=== PATIENT | female | born 1940 | race Caucasian/White ===

== ENCOUNTER → 2018-04-01 08:10 | Outpatient (CLI) | payer MEDICARE, OTHER | END | disposition home or self-care (01) | LOC: D.MRI 08:10 | DX: M54.2 Cervicalgia (principal) ==

== ENCOUNTER → 2020-03-26 10:51 | Outpatient (CLI) | payer MEDICARE, OTHER | END | disposition home or self-care (01) | LOC: D.LAB 10:51 | PROVIDERS: ATTEND Family Medicine | DX: Z20.828 Contact with and (suspected) exposure to other viral communicable diseases (principal) ==

== ENCOUNTER → 2020-03-28 09:08 | Outpatient (CLI) | payer MEDICARE, OTHER | END | disposition home or self-care (01) | LOC: D.RT 02-22 09:00 | PROVIDERS: ATTEND Family Medicine | DX: J44.9 Chronic obstructive pulmonary disease, unspecified (principal); Z20.828 Contact with and (suspected) exposure to other viral communicable diseases ==

== ENCOUNTER → 2020-05-17 19:23 | Outpatient (CLI) | payer MEDICARE, OTHER | END | disposition home or self-care (01) | LOC: D.LABREF 19:23 | PROVIDERS: ATTEND Orthopaedic Surgery | DX: M16.11 Unilateral primary osteoarthritis, right hip (principal) ==

== ENCOUNTER 2020-05-19 14:47 | Inpatient (IN) | payer MEDICARE, OTHER ==
[~2020-05-19] VITALS: Ht 160 cm; Wt 68.0 kg
[2020-05-25] MEDS ORDERED: PROTONIX40 MG PO (10:53)
[2020-05-25] MEDS ORDERED: PLAVIX75 MG PO (10:54)
[2020-05-25] MEDS ORDERED: TOPROL XL25 MG PO (10:54)
[2020-05-25] MEDS ORDERED: LOPID600 MG PO (10:55)
[2020-05-25] MEDS ORDERED: EXFORGE 5-160 M1 TAB PO (10:55)
[2020-05-25] MEDS ORDERED: CELEXA40 MG PO (10:55)
[2020-05-25] MEDS ORDERED: LASIX20 MG PO (10:56)
[2020-05-25] MEDS ORDERED: PROAIR HFA8.5 G1 INH (10:57)
[2020-05-25] MEDS ORDERED: VASCEPA1 GM PO (10:57)
[2020-05-25] MEDS ORDERED: ADVAIR 250-501 EAC1 INH (10:58)
[2020-05-25 12:33] LABS: BASOPHILS 0.4 % (0-2); EOSINOPHILS 2.7 % (0-7); HEMATOCRIT 33.7 % (36.0-48.0); HEMOGLOBIN 11.1 g/dL (12-16); IMMATURE GRANULOCYTES 0.2 % (0-5); LYMPHOCYTES 22.9 % (15-50); MCH 30.4 pg (26.0-34.0); MCHC 32.9 g/dL (31.0-37.0); MCV 92.3 fL (80.0-100.0); MEAN PLATELET VOLUME 9.3 fL (7.4-10.4); MONOCYTES 9.3 % (2-11); NEUTROPHILS 64.5 % (40-80); PLATELET COUNT 254 10x3/uL (130-400); RBC 3.65 10x6/uL (4.00-5.40); RDW 13.2 % (11.5-14.5); WBC 5.5 10x3/uL (4.8-10.8)
[2020-05-25 12:42] LABS: ANION GAP 13.2 mmol/L (8-16); CALCIUM 9.2 mg/dL (8.5-10.1); CARBON DIOXIDE 25.9 mmol/L (21.0-32.0); CREATININE - SERUM 1.3 mg/dL (0.6-1.3); POTASSIUM - SERUM 4.1 mmol/L (3.5-5.1)
[2020-05-25 12:45] LABS: APTT 30.7 SECONDS (22.8-39.4); INR 0.92 (0.85-1.17); PROTIME 12.3 SECONDS (11.6-15.0)
[2020-05-25 14:27] LABS: BILIRUBIN NEGATIVE (NEGATIVE); KETONE NEGATIVE (NEGATIVE); NITRITE NEGATIVE (NEGATIVE); UROBILINOGEN NORMAL mg/dL (< 2)
[2020-05-31 11:10] VITALS: BP 122/63; BMI 26.6
--- NOTE | 2020-05-31 14:07 | NUR ---
THROUGH TRAFFIC KEPT TO A MINIMUM. HIBACLENS AND ALCOHOL USED TO CLEAN BEFORE PREPPING. STERILE GOWNED AND GLOVED TO PREP WITH CHLORAPERP.
[2020-05-31 16:07] VITALS: BP 120/60
--- NOTE | 2020-05-31 16:10 | NUR ---
RECEIVED TO ROOM 1210 VIA BED FROM PACU.A/O X3. C/O PAIN TO RIGHT LEG AT THIS TIME. WILL MONITOR. SKIN IS INTACT WITHOUT REDNESS EXCEPT INCISION TO RIGHT GROIN WHICH HAS A DRY INTACT DRESSSING IN PLACE. ATTEMPTED TO CONTACT FAMILY WITHOUT SUCCESS.
[2020-05-31 16:12] VITALS: BP 120/60; BMI 26.6
[2020-05-31 16:25] VITALS: BP 111/49
[2020-05-31 16:45] VITALS: BP 98/64
--- NOTE | 2020-05-31 18:41 | NUR ---
REFUSED SUPPER. REPORTS PAIN IS A LEVEL 8 AT THIS TIME. SPOKE WITH DR. FLORES AND GOT NEW ORDER FOR 100MG ULTRAM PRN. WILL GIVE NEEDED.
--- NOTE | 2020-05-31 18:42 | NUR ---
GIVEN 1000MG TYLENOL PO AT THIS TIME FOR PAIN. WILL MONITOR. DAUGHTER AT BEDSIDE.
--- NOTE | 2020-05-31 19:30 | NUR ---
ALERT RESTING IN BED, CO PAIN ULTRAM GIVEN ORDERED, SEE SHIFT ASSESSMENT, LEIGHANN DICKINSON
[2020-05-31 19:53] VITALS: BP 117/72
[2020-06-01 04:00] VITALS: BP 150/56
[2020-06-01 07:24] LABS: BASOPHILS 0.1 % (0-2); EOSINOPHILS 0.1 % (0-7); IMMATURE GRANULOCYTES 0.2 % (0-5); LYMPHOCYTES 9.2 % (15-50); MCH 30.1 pg (26.0-34.0); MCHC 33.3 g/dL (31.0-37.0); MCV 90.3 fL (80.0-100.0); MEAN PLATELET VOLUME 9.7 fL (7.4-10.4); MONOCYTES 9.6 % (2-11); NEUTROPHILS 80.8 % (40-80); PLATELET COUNT 238 10x3/uL (130-400); RBC 2.99 10x6/uL (4.00-5.40); RDW 12.9 % (11.5-14.5); WBC 8.8 10x3/uL (4.8-10.8)
--- NOTE | 2020-06-01 07:30 | NUR ---
PT AWAKE AND ALERT. LAYING ON BACK. NO NEEDS AT THIS TIME. WOULD LIKE TO SEE IF WE CAN GET SOME MEDICATION TO HELP HER SLEEP. STATES SHE DOESN'T TAKE ANYTHING AT THIS TIME. STATES SHE USED TO TAKE A XANAX BUT IT QUIT WORKING. CL IN REACH. WCTM
[2020-06-01 07:37] LABS: ANION GAP 14.9 mmol/L (8-16); CALCIUM 7.6 mg/dL (8.5-10.1); CREATININE - SERUM 1.1 mg/dL (0.6-1.3); MAGNESIUM - SERUM 1.5 mg/dL (1.8-2.4); POTASSIUM - SERUM 4.9 mmol/L (3.5-5.1)
[2020-06-01 08:07] VITALS: BP 126/52
--- NOTE | 2020-06-01 08:42 | OP ---
PATIENT NAME: TUSHAR ALMARAZ MEDICAL RECORD: [id number] :38 LOCATION:D. D.1210 ADMISSION DATE:05/31/20 SURGEON: LAURENT FLORES DO DATE OF OPERATION: 05/31/2020 PROCEDURE PERFORMED: Right total hip arthroplasty. PREOPERATIVE DIAGNOSIS: Right hip osteoarthritis. POSTOPERATIVE DIAGNOSIS: Right hip osteoarthritis. INDICATIONS: Ms. Almaraz is an 79-year-old female who has had right hip pain for quite some time. She has tried all manner of nonoperative treatment for this, she is tired of dealing with the pain and this affects her activities of daily living and wants something done surgically. She was informed of the risks including infection, bleeding, damage to nerves and vessels in the area, continued pain, blood clots, need for further surgery, fracture, failure of implants and even , and she signed the consent. SURGEON: Laurent Flores DO DESCRIPTION OF PROCEDURE: The patient was taken to the OR suite, laid in supine position, given general anesthetic and intubated. She was given 2 grams Ancef, 80 mg of gentamicin preoperatively and a gram of TXA. She was then moved over to the [place] table and positioned and the right hip was prepped and draped in sterile fashion. Timeout was performed. Everyone was in agreement with the correct site, side, patient, and procedure. I then made an incision over the fascia alan muscle belly and careful dissection made down to the muscle. Raised the fascia off it, took the fascia anteriorly, muscle belly posteriorly, and opened up the rectus interval. The rectus then taken medially and the tensor fascia alan laterally. I then encountered the ascending branch of lateral femoral circumflex artery, tied it off and coagulated with Aquamantys. I then exposed the femoral neck and I opened the capsule, tagged it, put Hohmann's around the femoral neck. We then made a femur cut and removed the head and then removed the labrum and the pulvinar and began reaming, reamed up to a 50. I impacted the cup into place and then once the cup was impacted into place, the liner was put in, impacted in. The femur was exposed and put in the canal finder, first canal finder and then cookie cutter and then broached up to a 10. 10 took very tightly and then reduced with a -6 neck. It appeared to be a little long compared to the left side, so removed the 10 cuts more the femur and then put in a #9 stem down, trialed with a -6 neck and that had equal lengths to the other side. I then put in a #9 stem, impacted into place and was very firmly in the femur, did not move at all. I then impacted on the head and then reduced the hip, then irrigated with 10% povidone-iodine with 500 mL of normal saline solution. I then irrigated that out with a liter of normal saline and then put in Jared, vancomycin and tobramycin powder. Wilmer Henriquez, certified surgical loan assistant, closed the tensor fascia alan with a #1 Vicryl in [id number] and running locking stitch. I then closed the skin with a 2-0 Vicryl in inverted interrupted fashion, 4-0 Monocryl running on the skin, and Prineo glue placed on the skin. Once they dried, Telfa and Tegaderm were placed on the skin. She was awakened and taken to recovery in stable condition. Blood loss was approximately 200 mL. COMPLICATIONS: None. OPERATIVE REPORT [id number] TUSHAR ALMARAZ TRANSFAUSTINO:[id number] Voice Confirmation ID: [id number] DOCUMENT ID: [id number] LAURENT FLORES DO at 0842 CC: [id number] DICTATION DATE: 05/31/20 1505 FIELD SUPERINTENDENT: 06/01/20 0021 ADM IN [facility] [address] [place] [address]
--- NOTE | 2020-06-01 09:20 | NUR ---
ASSISTED PT TO BATHROOM AND GETTING DRESSED. STATED SHE FEELS SO WEAK. MEDS GIVEN PER EMAR. CL IN REACH. WCTM
[2020-06-01 10:50] VITALS: Ht 160 cm; Wt 68.0 kg
--- NOTE | 2020-06-01 10:51 | NUR ---
PT AWAKE SITTING IN CHAIR. STATES HER NECK HURTS MORE THAN HER HIP. GIVEN AN ICE PACK. "I NEVER THOUGHT ABOUT AN ICE PACK BEFORE. IT WORKS WONDERFULLY." CL IN REACH. MAG DONE INFUSING. CHAIR ALARM ON. STATES HIP PAIN IS A 4 OUT OF 10 ON THE PAIN SCALE. TM
[2020-06-01 11:27] VITALS: BP 115/45
--- NOTE | 2020-06-01 15:54 | NUR ---
DAUGHTER CARIDAD IN ROOM. ASSISTED PT TO BATHROOM AND BACK TO BED. CL IN REACH. [facility]
[2020-06-01 16:00] VITALS: BP 99/49
--- NOTE | 2020-06-01 17:40 | NUR ---
PT WITH C/O "HEARTBURN AND REFLUX". PAGE PLACED TO BRIANA LAUGHLIN APRN. PAGE RETURNED AND ORACLE DATABASE DEVELOPER NOTIFIED OF PT STATE. TELEPHONE ORDERS RECD ARE 30ML MAALOX PO Q [address] ORDER AND NOTIFY SHIFT NURSE OF ORDER.
--- NOTE | 2020-06-01 18:34 | NUR ---
DAUGHTER IN ROOM. STATES SHE FEELS LIKE SHE IS BLOATED. MYLANTA RECIEVED FOR ACID REFLUX. DAUGHTER BENNY IN ROOM. CL IN REACH. BED ALARM ON. WCTM
[2020-06-01 20:00] VITALS: BP 123/73
--- NOTE | 2020-06-01 20:00 | NUR ---
ALERT RESTIGN IN BED, REPORTS SORENESS TO HIP REQUESTIGN PAIN PILL FOR REST TONIGHT, SEE SHIFT ASSESSMENT, CALL GAURAV DICKINSON
[2020-06-02 05:00] VITALS: BP 111/53
[2020-06-02 07:19] LABS: BASOPHILS 0.2 % (0-2); CALCIUM 7.7 mg/dL (8.5-10.1); CARBON DIOXIDE 26.3 mmol/L (21.0-32.0); CREATININE - SERUM 1.2 mg/dL (0.6-1.3); EOSINOPHILS 2.8 % (0-7); HEMATOCRIT 25.2 % (36.0-48.0); HEMOGLOBIN 8.2 g/dL (12-16); IMMATURE GRANULOCYTES 0.2 % (0-5); LYMPHOCYTES 15.4 % (15-50); MCH 29.9 pg (26.0-34.0); MCHC 32.5 g/dL (31.0-37.0); MEAN PLATELET VOLUME 9.5 fL (7.4-10.4); MONOCYTES 11.7 % (2-11); NEUTROPHILS 69.7 % (40-80); PLATELET COUNT 201 10x3/uL (130-400); POTASSIUM - SERUM 4.3 mmol/L (3.5-5.1); RBC 2.74 10x6/uL (4.00-5.40)
[2020-06-02 07:20] LABS: MAGNESIUM - SERUM 2.5 mg/dL (1.8-2.4)
[2020-06-02] MEDS ORDERED: ELIQUIS2.5 MG PO (07:50)
[2020-06-02] MEDS ORDERED: ULTRAM50 MG PO (07:51)
[2020-06-02] MEDS ORDERED: KEFLEX500 MG PO (07:51)
[2020-06-02] MEDS ORDERED: FERROUS SULFAT325 MG PO (07:51)
--- NOTE | 2020-06-02 08:15 | NUR ---
PT RESTING IN BED, CALLING FOR STAFF. ASSISTED PT TO BR AND BACK TO BED WITH MINIMAL ASSIST UTILIZING WALKER. PT DENIES PAIN AT THIS TIME. SALINE LOC TO LEFT AC, SITE WITHOUT REDNESS OR EDEMA. DRESSING TO RIGHT HIP C/D/I. DENIES FURTHER NEEDS AT THIS TIME. CL WITHIN REACH. ENCOURAGED TO CALL WITH NEEDS. CONTINUE POC
[2020-06-02 08:38] VITALS: BP 107/42
[2020-06-02 11:33] VITALS: BP 123/46
--- NOTE | 2020-06-02 11:53 | MORECARE ---
CASE MANAGEMENT DISCHARGE SUMMARY PATIENT: TUSHAR ALMARAZ UNIT: [id number] ADM DATE: 05/31/20 AGE: 79 : 39 SEX: F ROOM/BED: D.1210 AUTHOR: MARCIANO DC PHYSICIAN: REFERRING PHYSICIAN: GLENNY FLORES DO DATE OF SERVICE: 06/02/20 Discharge Plan Patient Name: TUSHAR ALMARAZ [facility] [facility] 1940 Planned Disposition: Home Health Service Anticipated Discharge Date: 06/02/20 Discharge Date: Expected LOS: 2 Initial Reviewer: [email or web address] Initial Review Date: 06/02/2020 Generated: 06/02/20 12:53 pm DCPIA - Discharge Planning Initial Assessment Updated by [email or web address]: Lalo Neff on 06/02/20 11:53 am * Is the patient Alert and Oriented? Yes * How many steps to enter\exit or inside your home? 2/0 * PCP Isabela Zuluaga APRN * [facility] [address] * Preadmission Environment Home with Family * ADLs Independent * Equipment Oxygen Walker * Other Equipment n/a * List name and contact numbers for known caregivers / representatives who currently or will assist patient after discharge: Daughter, Justine Stein, or [phone] * Verbal permission to speak to the caregivers and representatives has been obtained from the patient. Yes * Community resources currently utilized None * Please name any agencies selected above. n/a * Additional services required to return to the preadmission environment? Yes * Can the patient safely return to the preadmission environment? Yes * Has this patient been hospitalized within the prior 30 days at any hospital? No Patient Name: TUSHAR ALAMRAZ Page [phone] at 1153 All edits/amendments must be made on the electronic document DICTATION DATE: 06/02/20 115 SENIOR ANIMATOR: STU 06/02/20 115 RPT#: [id number] DC DATE: STATUS: ADM IN [facility] [address] [place] [address] END OF REPORT
--- NOTE | 2020-06-02 12:06 | MORECARE ---
CASE MANAGEMENT DISCHARGE SUMMARY PATIENT: TUSHAR ALMARAZ UNIT: [id number] ADM DATE: 05/31/20 AGE: 79 : 39 SEX: F ROOM/BED: D.1210 AUTHOR: DAO,DOC PHYSICIAN: REFERRING PHYSICIAN: GLENNY FLORES DO DATE OF SERVICE: 06/02/20 Discharge Plan Patient Name: TUSHAR ALMARAZ Facility: [facility]:[place] : 1940 Planned Disposition: Home Health Service Anticipated Discharge Date: 06/02/20 Discharge Date: Expected LOS: 2 Initial Reviewer: [email or web address] Initial Review Date: 06/02/2020 Generated: 06/02/20 1:06 pm Comments DCP- Discharge Planning Updated by [email or web address]: Lalo Neff on 06/02/20 11:[address] Patient Name: TUSHAR ALMARAZ Admission Status: Elective Accout number: [id number] Admission Date: 05-31-2020 : 1940 Admission Diagnosis: Attending: GLENNY FLORES Current LOS: 2 Anticipated DC Date: 06-02-2020 Planned Disposition: Home Health Service Primary Insurance: MEDICARE A & B Discharge Planning Comments: CM met with patient to complete DC plan and needs. CM educated patient on the CM role and verbal consent was given by patient to complete assessment. CM verified patient's address, phone number, and emergency contact phone numbers. Patient lives at home with her . At discharge patient plans to return and feels this is a safe discharge. The patient has 2 steps to navigate to enter the home and it is safe. Patient fills her medications at [facility] in [place]. CM discussed availability of home health, rehab services, and medical equipment. Patient declined SNF, IPR, and DME. The patient stated that she would like for HHS to come to her home. Patient further stated "...I don't care who it is as long as they can come to my house and it's paid for...". This CM asked about Outpatient Physical therapy. Patient stated that she prefers HHS because she and her do not want to have to drive to therapy. Patient further stated that if she does have to have drive to a therapy facility that she "...would have to speak to her about which one is close enough or easy enough to get to". The patient neither mentioned nor discussed any other discharge needs and she is satisfied with DC plan. Transportation provider at discharge will be with her daughter, Justine Stein ([phone] or [phone]) . DC IMM delivered, explained, signed by the patient, and placed in chart. Signed form also left with the patient. CM will continue to follow and will assist as needed with dc plans/needs. Manual Winder: Lalo Neff DCPIA - Discharge Planning Initial Assessment Updated by [email or web address]: Lalo Neff on 06/02/20 11:53 am * Is the patient Alert and Oriented? Yes * How many steps to enter\\exit or inside your home? 2/0 * PCP Isabela Zuluaga APRN * [facility] [address] * Preadmission Environment Home with Family * ADLs Independent * Equipment Oxygen Walker * Other Equipment n/a * List name and contact numbers for known caregivers / representatives who currently or will assist patient after discharge: Daughter, Justine Stein, or [phone] * Verbal permission to speak to the caregivers and representatives has been obtained from the patient. Yes * Community resources currently utilized None * Please name any agencies selected above. n/a * Additional services required to return to the preadmission environment? Yes * Can the patient safely return to the preadmission environment? Yes * Has this patient been hospitalized within the prior 30 days at any hospital? No Coverage Notice Reviewer: GERARDO Neff Notice Issued Date-Time: 06/02/2020 11:35 Notice Type: IM Discharge Notice Notice Delivered To: Patient Relationship to Patient: [employer] Name: Delivery Method: HAND - Hand Delivered Kailee Days: Prior Verbal Notification: Recipient Understood Notice: Yes Recipient Signature: Yes Med Rec Note Co-signed by Attending: Coverage Notice Comment: DC IMM delivered, explained, signed by the patient, and placed in chart. Signed form also left with the patient. Reviewer: GERARDO Neff Notice Issued Date-Time: 06/02/2020 11:35 Notice Type: Patient Choice Letter Notice Delivered To: Patient Relationship to Patient: Self [employer] Name: Delivery Method: HAND - Hand Delivered Kailee Days: Prior Verbal Notification: Recipient Understood Notice: Yes Recipient Signature: Yes Med Rec Note Co-signed by Attending: Coverage Notice Comment: Last DP export: 06/02/20 10:53 a Patient Name: TUSHAR ALMARAZ Page [phone] at 1206 All edits/amendments must be made on the electronic document DICTATION DATE: 06/02/20 1206 FOOD ASSEMBLER KITCHEN: STU 06/02/20 1206 RPT#: [id number] DC DATE: STATUS: ADM IN [facility] [address] [place] [address] END OF REPORT
[2020-06-02 15:27] VITALS: BP 113/40
--- NOTE | 2020-06-02 16:31 | MORECARE ---
CASE MANAGEMENT DISCHARGE SUMMARY PATIENT: TUSHAR ALMARAZ UNIT: [id number] ADM DATE: 05/31/20 AGE: 79 : 39 SEX: F ROOM/BED: D.1210 AUTHOR: DAO,DOC PHYSICIAN: REFERRING PHYSICIAN: GLENNY FLORES DO DATE OF SERVICE: 06/02/20 Discharge Plan Patient Name: TUSHAR ALMARAZ Facility: [facility]:[place] : 1940 Planned Disposition: Home Health Service Anticipated Discharge Date: 06/02/20 Discharge Date: Expected LOS: 2 Initial Reviewer: [email or web address] Initial Review Date: 06/02/2020 Generated: 06/02/20 5:31 pm Comments DCP- Discharge Planning Updated by [email or web address]: Lalo Neff on 06/02/20 11:[address] Patient Name: TUSHAR ALMARAZ Admission Status: Elective Accout number: [id number] Admission Date: 05-31-2020 : 1940 Admission Diagnosis: Attending: GLENNY FLORES Current LOS: 2 Anticipated DC Date: 06-02-2020 Planned Disposition: Home Health Service Primary Insurance: MEDICARE A & B Discharge Planning Comments: CM met with patient to complete DC plan and needs. CM educated patient on the CM role and verbal consent was given by patient to complete assessment. CM verified patient's address, phone number, and emergency contact phone numbers. Patient lives at home with her . At discharge patient plans to return and feels this is a safe discharge. The patient has 2 steps to navigate to enter the home and it is safe. Patient fills her medications at [facility] in [place]. CM discussed availability of home health, rehab services, and medical equipment. Patient declined SNF, IPR, and DME. The patient stated that she would like for HHS to come to her home. Patient further stated "...I don't care who it is as long as they can come to my house and it's paid for...". This CM asked about Outpatient Physical therapy. Patient stated that she prefers HHS because she and her do not want to have to drive to therapy. Patient further stated that if she does have to have drive to a therapy facility that she "...would have to speak to her about which one is close enough or easy enough to get to". The patient neither mentioned nor discussed any other discharge needs and she is satisfied with DC plan. Transportation provider at discharge will be with her daughter, Justine Stein ([phone] or [phone]) . DC IMM delivered, explained, signed by the patient, and placed in chart. Signed form also left with the patient. CM will continue to follow and will assist as needed with dc plans/needs. Wool Grower: Lalo Neff DCPIA - Discharge Planning Initial Assessment Updated by [email or web address]: Lalo Neff on 06/02/20 11:53 am * Is the patient Alert and Oriented? Yes * How many steps to enter\\exit or inside your home? 2/0 * PCP Isabela Zuluaga APRN * [facility] [address] * Preadmission Environment Home with Family * ADLs Independent * Equipment Oxygen Walker * Other Equipment n/a * List name and contact numbers for known caregivers / representatives who currently or will assist patient after discharge: Daughter, Justine Stein, or [phone] * Verbal permission to speak to the caregivers and representatives has been obtained from the patient. Yes * Community resources currently utilized None * Please name any agencies selected above. n/a * Additional services required to return to the preadmission environment? Yes * Can the patient safely return to the preadmission environment? Yes * Has this patient been hospitalized within the prior 30 days at any hospital? No External Providers External Provider: [facility] Next Contact Date: Service Request Date: Service Type: Resolution: Reviewer: Comments: Coverage Notice Reviewer: [email or web address] Jovani Neff Notice Issued Date-Time: 06/02/2020 11:35 Notice Type: IM Discharge Notice Notice Delivered To: Patient Relationship to Patient: Self Community Service Officer Name: Delivery Method: HAND - Hand Delivered Kailee Days: Prior Verbal Notification: Recipient Understood Notice: Yes Recipient Signature: Yes Med Rec Note Co-signed by Attending: Coverage Notice Comment: DC IMM delivered, explained, signed by the patient, and placed in chart. Signed form also left with the patient. Reviewer: [email or web address] Jovani Neff Notice Issued Date-Time: 06/02/2020 11:35 Notice Type: Patient Choice Letter Notice Delivered To: Patient Relationship to Patient: Self Community Service Officer Name: Delivery Method: HAND - Hand Delivered Kailee Days: Prior Verbal Notification: Recipient Understood Notice: Yes Recipient Signature: Yes Med Rec Note Co-signed by Attending: Coverage Notice Comment: Last DP export: 06/02/20 11:06 a Patient Name: TUSHAR ALMARAZ Page [phone] at 1631 All edits/amendments must be made on the electronic document DICTATION DATE: 06/02/20 1631 FEATHERER: STU 06/02/20 1631 RPT#: [id number] DC DATE: STATUS: ADM IN [facility] [address] [place] [address] END OF REPORT
--- NOTE | 2020-06-02 16:41 | MORECARE ---
CASE MANAGEMENT DISCHARGE SUMMARY PATIENT: TUSHAR ALMARAZ UNIT: [id number] ADM DATE: 05/31/20 AGE: 79 : 39 SEX: F ROOM/BED: D.1210 AUTHOR: DAO,DOC PHYSICIAN: REFERRING PHYSICIAN: GLENNY FLORES DO DATE OF SERVICE: 06/02/20 Discharge Plan Patient Name: TUSHAR ALMARAZ Facility: [facility]:[place] : 1940 Planned Disposition: Home Health Service Anticipated Discharge Date: 06/02/20 Discharge Date: Expected LOS: 2 Initial Reviewer: [email or web address] Initial Review Date: 06/02/2020 Generated: 06/02/20 5:41 pm Comments DCP- Discharge Planning Updated by GERARDO: Lalo Neff on 06/02/20 3:[address] Clinicals faxed to [facility]. DCP- Discharge Planning Updated by GERARDO: Lalo Neff on 06/02/20 11:[address] Patient Name: TUSHAR ALMARAZ Admission Status: Elective Accout number: [id number] Admission Date: 05-31-2020 : 1940 Admission Diagnosis: Attending: GLENNY FLORES Current LOS: 2 Anticipated DC Date: 06-02-2020 Planned Disposition: Home Health Service Primary Insurance: MEDICARE A & B Discharge Planning Comments: CM met with patient to complete DC plan and needs. CM educated patient on the CM role and verbal consent was given by patient to complete assessment. CM verified patient's address, phone number, and emergency contact phone numbers. Patient lives at home with her . At discharge patient plans to return and feels this is a safe discharge. The patient has 2 steps to navigate to enter the home and it is safe. Patient fills her medications at [facility] in [place]. CM discussed availability of home health, rehab services, and medical equipment. Patient declined SNF, IPR, and DME. The patient stated that she would like for HHS to come to her home. Patient further stated "...I don't care who it is as long as they can come to my house and it's paid for...". This CM asked about Outpatient Physical therapy. Patient stated that she prefers HHS because she and her do not want to have to drive to therapy. Patient further stated that if she does have to have drive to a therapy facility that she "...would have to speak to her about which one is close enough or easy enough to get to". The patient neither mentioned nor discussed any other discharge needs and she is satisfied with DC plan. Transportation provider at discharge will be with her daughter, Justine Stein ([phone] or [phone]) . DC IMM delivered, explained, signed by the patient, and placed in chart. Signed form also left with the patient. CM will continue to follow and will assist as needed with dc plans/needs. Roustabout: Lalo eNff DCPIA - Discharge Planning Initial Assessment Updated by [id number]: Lalo Neff on 06/02/20 11:53 am * Is the patient Alert and Oriented? Yes * How many steps to enter\\exit or inside your home? 2/0 * PCP Iasbela Zuluaga APRN * [facility] [address] * Preadmission Environment Home with Family * ADLs Independent * Equipment Oxygen Walker * Other Equipment n/a * List name and contact numbers for known caregivers / representatives who currently or will assist patient after discharge: Daughter, Justine Stein, or [phone] * Verbal permission to speak to the caregivers and representatives has been obtained from the patient. Yes * Community resources currently utilized None * Please name any agencies selected above. n/a * Additional services required to return to the preadmission environment? Yes * Can the patient safely return to the preadmission environment? Yes * Has this patient been hospitalized within the prior 30 days at any hospital? No Coverage Notice Reviewer: [id number] Jovani Neff Notice Issued Date-Time: 06/02/2020 11:35 Notice Type: IM Discharge Notice Notice Delivered To: Patient Relationship to Patient: Self Lead Electrical Engineer Name: Delivery Method: HAND - Hand Delivered Kailee Days: Prior Verbal Notification: Recipient Understood Notice: Yes Recipient Signature: Yes Med Rec Note Co-signed by Attending: Coverage Notice Comment: DC IMM delivered, explained, signed by the patient, and placed in chart. Signed form also left with the patient. Reviewer: [email or web address] - Lalo Neff Notice Issued Date-Time: 06/02/2020 11:35 Notice Type: Patient Choice Letter Notice Delivered To: Patient Relationship to Patient: Self Lead Electrical Engineer Name: Delivery Method: HAND - Hand Delivered Kailee Days: Prior Verbal Notification: Recipient Understood Notice: Yes Recipient Signature: Yes Med Rec Note Co-signed by Attending: Coverage Notice Comment: Last DP export: 06/02/20 3:31 p Patient Name: TUSHAR ALMARAZ Page [id number] at 1641 All edits/amendments must be made on the electronic document DICTATION DATE: 06/02/201640 VOLTAGE REGULATOR ASSEMBLER: STU 06/02/201640 RPT#: [id number] DC DATE: STATUS: ADM IN [facility] [address] [place] [address] END OF REPORT
[2020-06-03 06:05] LABS: BASOPHILS 0.2 % (0-2); EOSINOPHILS 2.8 % (0-7); HEMATOCRIT 25.6 % (36.0-48.0); HEMOGLOBIN 8.2 g/dL (12-16); IMMATURE GRANULOCYTES 0.2 % (0-5); LYMPHOCYTES 16.8 % (15-50); MCH 29.3 pg (26.0-34.0); MCV 91.4 fL (80.0-100.0); MEAN PLATELET VOLUME 9.4 fL (7.4-10.4); MONOCYTES 10.6 % (2-11); NEUTROPHILS 69.4 % (40-80); PLATELET COUNT 220 10x3/uL (130-400); RDW 12.9 % (11.5-14.5)
[2020-06-03 06:18] LABS: ANION GAP 12.9 mmol/L (8-16); CALCIUM 8.3 mg/dL (8.5-10.1); CARBON DIOXIDE 24.9 mmol/L (21.0-32.0); CREATININE - SERUM 1.1 mg/dL (0.6-1.3); MAGNESIUM - SERUM 2.5 mg/dL (1.8-2.4); POTASSIUM - SERUM 3.8 mmol/L (3.5-5.1)
--- NOTE | 2020-06-03 07:20 | NUR ---
PT RESTING IN BED, REQUESTING ASSISTANCE TO BATHROOM. PT REQUIRES MINIMAL ASSIST WITH TRANSFER FROM BED TO BR AND BACK TO BED. REPORTS PAIN 4/10 AT THIS TIME. SALINE LOC NOTED TO LEFT FOREARM, SITE WITHOUT REDNESS OR EDEMA. DRESSING C/D/I TO RIGHT HIP. PT REQUEST TO SIT UP ON SIDE OF BED FOR TIME. PT DAVID WELL. DENIES FURTHER NEEDS AT THIS TIME. CL WITHIN REACH. CONTINUE POC
[2020-06-03 07:29] VITALS: BP 119/47
[2020-06-03 12:05] VITALS: BP 107/53
--- NOTE | 2020-06-03 14:10 | NUR ---
PT DISCHARGE INSTRUCTIONS PROVIDED WITH EDUCATION REGARDING MEDICATIONS PRESCRIBED. PT DENIES ANY QUESTIONS REGARDING CONTINUATION OF HOME MEDICATIONS OR NEW PRESCRIBED MEDS. IV TO LEFT FOREARM D/C'D, CATH INTACT. DRESSING TO RIGHT HIP REMOVED, MINIMAL DRAINAGE NOTED. DERMABOND GLUE STRIP INTACT. WOUND EDGES WELL APPROXIMATED. APPLIED MEPILEX AG DRESSING TO RIGHT HIP. INSTRUCTED PT AND FAMILY OF DRESSING CHANGE ORDERS. PT OR FAMILY DENIES QUESTIONS OR CONCERNS. HOME HEALTH INFORMATION PROVIDED. PT TAKEN OUT VIA W/C TO PRIVATE VEHICLE FOR D/C HOME WITH ALL PERSONAL POSESSIONS
--- NOTE | 2020-06-06 09:02 | MORECARE ---
CASE MANAGEMENT DISCHARGE SUMMARY PATIENT: TUSHAR ALMARAZ UNIT: [id number] ADM DATE: 05/31/20 AGE: 79 : 38 SEX: F ROOM/BED: D.1210 AUTHOR: DAO,DOC PHYSICIAN: REFERRING PHYSICIAN: GLENNY FLORES DO DATE OF SERVICE: 06/06/20 Discharge Plan Patient Name: TUSHAR ALMARAZ Facility: [facility]:[place] : 1940 Planned Disposition: Home Health Service Anticipated Discharge Date: 06/02/20 Discharge Date: 06/03/2020 Expected LOS: 2 Initial Reviewer: [email or web address] Initial Review Date: 06/02/2020 Generated: 06/06/20 10:01 am Comments DCP- Discharge Planning Updated by GERARDO: Lalo Neff on 06/02/20 3:[address] Clinicals faxed to [facility]. DCP- Discharge Planning Updated by GERARDO: Lalo Neff on 06/02/20 11:[address] Patient Name: TUSHAR ALMARAZ Admission Status: Elective Accout number: [id number] Admission Date: 05-31-2020 : 1940 Admission Diagnosis: Attending: GLENNY FLORES Current LOS: 2 Anticipated DC Date: 06-02-2020 Planned Disposition: Home Health Service Primary Insurance: MEDICARE A & B Discharge Planning Comments: CM met with patient to complete DC plan and needs. CM educated patient on the CM role and verbal consent was given by patient to complete assessment. CM verified patient's address, phone number, and emergency contact phone numbers. Patient lives at home with her . At discharge patient plans to return and feels this is a safe discharge. The patient has 2 steps to navigate to enter the home and it is safe. Patient fills her medications at [facility] on [address] in [place]. CM discussed availability of home health, rehab services, and medical equipment. Patient declined SNF, IPR, and DME. The patient stated that she would like for [facility] to come to her home. Patient further stated "...I don't care who it is as long as they can come to my house and it's paid for...". This CM asked about Outpatient Physical therapy. Patient stated that she prefers [facility] because she and her do not want to have to drive to therapy. Patient further stated that if she does have to have drive to a therapy facility that she "...would have to speak to her about which one is close enough or easy enough to get to". The patient neither mentioned nor discussed any other discharge needs and she is satisfied with DC plan. Transportation provider at discharge will be with her daughterJustine ([phone] or [phone]) . DC IMM delivered, explained, signed by the patient, and placed in chart. Signed form also left with the patient. CM will continue to follow and will assist as needed with dc plans/needs. [employer]: Lalo Neff DCPIA - Discharge Planning Initial Assessment Updated by [email or web address]: Lalo Neff on 06/02/20 11:53 am * Is the patient Alert and Oriented? Yes * How many steps to enter\\exit or inside your home? 2/0 * PCP Isabela Zuluaga APRN * [facility] [address] * Preadmission Environment Home with Family * ADLs Independent * Equipment Oxygen Walker * Other Equipment n/a * List name and contact numbers for known caregivers / representatives who currently or will assist patient after discharge: DaughterJustine, or [phone] * Verbal permission to speak to the caregivers and representatives has been obtained from the patient. Yes * Community resources currently utilized None * Please name any agencies selected above. n/a * Additional services required to return to the preadmission environment? Yes * Can the patient safely return to the preadmission environment? Yes * Has this patient been hospitalized within the prior 30 days at any hospital? No Coverage Notice Reviewer: [email or web address] Jovani Neff Notice Issued Date-Time: 06/02/2020 11:35 Notice Type: IM Discharge Notice Notice Delivered To: Patient Relationship to Patient: Self Veneer Clipper Helper Name: Delivery Method: HAND - Hand Delivered Kailee Days: Prior Verbal Notification: Recipient Understood Notice: Yes Recipient Signature: Yes Med Rec Note Co-signed by Attending: Coverage Notice Comment: DC IMM delivered, explained, signed by the patient, and placed in chart. Signed form also left with the patient. Reviewer: [email or web address] Neff Notice Issued Date-Time: 06/02/2020 11:35 Notice Type: Patient Choice Letter Notice Delivered To: Patient Relationship to Patient: Self Veneer Clipper Helper Name: Delivery Method: HAND - Hand Delivered Kailee Days: Prior Verbal Notification: Recipient Understood Notice: Yes Recipient Signature: Yes Med Rec Note Co-signed by Attending: Coverage Notice Comment: Last DP export: 06/02/20 3:41 p Patient Name: TUSHAR ALMARAZ Page [id number] at 0902 All edits/amendments must be made on the electronic document DICTATION DATE: 06/06/20901 OPTIONS TRADER: STU 06/06/20901 RPT#: [id number] DC DATE:06/03/20 STATUS: DIS IN [facility] [address] [place] [address] END OF REPORT
== END 2020-06-03 14:37 | disposition home health service (06) | DRG 470 ==
LOC: D.M3 05-31 10:40 → D.SDCHOLD 05-31 10:40 → D.M3 05-31 16:06
PROVIDERS: Family Medicine; ADMIT Orthopaedic Surgery; ATTEND Orthopaedic Surgery
PROC: 0SR90JZ Replacement of Right Hip Joint with Synthetic Substitute, Open Approach (ICD-10-PCS; principal; 2020-05-31 12:45)
DX: M16.11 Unilateral primary osteoarthritis, right hip (principal); I10 Essential (primary) hypertension; J44.9 Chronic obstructive pulmonary disease, unspecified; K21.9 Gastro-esophageal reflux disease without esophagitis; I25.10 Atherosclerotic heart disease of native coronary artery without angina pectoris; F32.9 Major depressive disorder, single episode, unspecified; Z86.73 Personal history of transient ischemic attack (TIA), and cerebral infarction without residual deficits